=== PATIENT | male | born 1995 | race Caucasian/White ===

== ENCOUNTER 2017-12-25 17:15 | Emergency (ER) | payer OTHER ==
[2017-12-25] MEDS ORDERED: IBUPROFEN 600 MG TABLET PO ONE (17:48)
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
[2017-12-25 19:02] VITALS: BP 109/68
== END 2017-12-25 19:02 | disposition home or self-care (01) ==
LOC: ER 17:15
DX: S16.1XXA Strain of muscle, fascia and tendon at neck level, initial encounter (principal); S39.012A Strain of muscle, fascia and tendon of lower back, initial encounter; V49.40XA Driver injured in collision with unspecified motor vehicles in traffic accident, initial encounter; F17.200 Nicotine dependence, unspecified, uncomplicated
CPT/HCPCS: 72050; 72110; 99284

== ENCOUNTER 2019-06-11 19:40 | Emergency (ER) | payer OTHER ==
[2019-06-11] MEDS ORDERED: CEPHALEXIN 500 MG CAPSULE PO ONE (20:36)
[2019-06-11] MEDS ORDERED: SULFAMETHOXAZOLE/TRIMETHOPRIM 800-160 MG TABLET PO ONE (20:36)
[2019-06-11] MEDS ORDERED: DIPHENHYDRAMINE HCL 50 MG CAPSULE PO ONE (20:36)
--- NOTE | 2019-06-11 20:52 | ER Document Report ---
HPI - HPI Patient complains to provider of: Left upper arm redness Time Seen by Provider: 06/11/19 20:36 Pain Level: 2 Context: Patient is a 24-year-old male presents to the emergency department with an area of erythema on his left upper arm. Patient states he was outside doing yard work today and noticed the swelling in his left upper arm. Patient states he also has an infection to the nail of his left middle finger. States last night he was able to open up the nailbed and expressed "so much pus." Patient is denying any fevers, itching, respiratory distress, chest pain, URI symptoms. - CONSTITUTIONAL Constitutional: DENIES: Fever, Chills - MUSCULOSKELETAL Musculoskeletal: REPORTS: Extremity pain - L middle finger Past Medical History - General Information source: Patient - Social History Smoking Status: Current Every Day Smoker Frequency of alcohol use: None Drug Abuse: None Family History: Reviewed & Not Pertinent Patient has suicidal ideation: No Patient has homicidal ideation: No Renal/ Medical History: Denies: Hx Peritoneal Dialysis Vertical Provider Document - CONSTITUTIONAL Agree With Documented VS: Yes Notes: GENERAL: Alert, interacts well. No acute distress. HEAD: Normocephalic, atraumatic. EYES: Pupils equal, round, and reactive to light. Extraocular movements intact. ENT: Oral mucosa moist, tongue midline. NECK: Full range of motion. Supple. Trachea midline. LUNGS: Clear to auscultation bilaterally, no wheezes, rales, or rhonchi. No respiratory distress. HEART: Regular rate and rhythm. No murmur ABDOMEN: Soft, non-tender. Non-distended. Bowel sounds present in all 4 quadrant s. EXTREMITIES: Moves all 4 extremities spontaneously. No edema, normal radial and dorsalis pedis pulses bilaterally. No cyanosis. BACK: no cervical, thoracic, lumbar midline tenderness. No saddle anesthesia, normal distal neurovascular exam. NEUROLOGICAL: Alert and oriented x3. Normal speech. cranial nerves II through XII grossly intact. PSYCH: Normal affect, normal mood. SKIN: Warm, dry, normal turgor. Well draining paronychia noted to the lateral aspect of the posterior left distal finger. Surrounding cellulitic tissue noted up to knuckle. She is 10 cm x 5 cm area of erythema nonfluctuant, nonindurated noted to the upper inner left arm. Does appear to be urticaria can nature. - INFECTION CONTROL TRAVEL OUTSIDE OF THE [place] IN LAST 30 DAYS: No Course - Re-evaluation Re-evalutation: 06/11/19 20:49 Paronychia noted to patient's left middle finger is noted to be well draining. There is noted to be cellulitic tissue, will treat with antibiotics. Rash noted to the left upper inner arm does appear to be allergic in nature. Discussed use of Benadryl and signs and symptoms of an allergic reaction. Patient voices understanding. At this time will discharge with return precautions and follow-up recommendations. Verbal discharge instructions given a the bedside and [facility] given. Medication warnings reviewed. Patient is in agreement with this plan and has verbalized understanding of return precautions and the need for primary care follow-up in the next 24-72 hours. This medical record was dictated with voice recognizing software. There may be grammatical, syntax errors that are unintended. - Vital Signs Vital signs: Temp Pulse Resp BP Pulse Ox 98.3 F 76 18 120/63 99 06/11/19 19:45 06/11/19 19:45 06/11/19 19:45 06/11/19 19:45 06/11/19 19:45 Discharge - Discharge Clinical Impression: Urticaria Paronychia of finger Qualifiers: Laterality: left Qualified Code(s): L03.012 - Cellulitis of left finger Cellulitis Qualifiers: Site of cellulitis: extremity Site of cellulitis of extremity: finger Laterality: left Qualified Code(s): L03.012 - Cellulitis of left finger Condition: Stable Disposition: HOME, SELF-CARE Instructions: Acute Urticaria ([facility]), Paronychia ([facility]), Cellulitis ([facility]) Additional Instructions: As we discussed you have been seen and treated in the emergency department for a rash in your left upper inner arm as well as an infection noted to your left middle finger. Please make sure you are taking antibiotics as prescribed. Please also take Benadryl 50 mg every 6 hours for generalized redness, swelling, itching of your left inner upper arm. Please return to the emergency room sh ould you have any signs of respiratory distress or any other concerns. Prescriptions: Sulfamethoxazole/Trimethoprim [Bactrim Ds Tablet] 1 each PO BID 7 Days #14 tablet Cephalexin Monohydrate [Keflex 500 mg Capsule] 500 mg PO BID 7 Days #14 capsule Forms: Return to Work
[2019-06-11 20:57] VITALS: BP 113/57
== END 2019-06-11 21:12 | disposition home or self-care (01) ==
LOC: ER 19:40
DX: L03.012 Cellulitis of left finger (principal); L50.9 Urticaria, unspecified; M79.89 Other specified soft tissue disorders; M79.645 Pain in left finger(s); F17.200 Nicotine dependence, unspecified, uncomplicated
CPT/HCPCS: 99282